=== PATIENT | male | born 1960 | race Caucasian/White ===

== ENCOUNTER 2020-04-09 14:10 | Emergency (ER) | payer OTHER, SELFPAY ==
[2020-04-09 14:13] VITALS: BMI 29.8
[2020-04-09 14:17] VITALS: BP 114/68; PULSE 90; RESP 18; TEMP 36.8; O2SAT 98
--- NOTE | 2020-04-09 14:17 | ED_ITS ---
HPI - General Adult General: Chief complaint: General Medical Stated complaint: constipation/urination problems Time Seen by Provider: 04/09/20 14:14 Source: patient Mode of arrival: ambulatory Limitations: no limitations History of Present Illness: HPI narrative: 59-year-old male who states he has been constipated over the last 2 days and can feel that he is impacted. Patient states he is also not been able to urinate over the last day but believes this is due to his constipation. He states he has abdominal pain he rates a 7 out of 10 lower. Denies any worsening or improving factors. Associated symptoms: Deny chest pain, dyspnea, headache(s) or rash Review of Systems Const: Denies: fever(s), chills, body aches or change in appetite Eyes: Denies: blurry vision or eye discomfort ENMT: Denies: throat pain or dental pain Card: Denies: chest pain Resp: Denies: dyspnea GI: Reports: abdominal pain and constipation : Reports: difficulty urinating Musc: Denies: neck pain or back pain Skin/Breast: Denies: rash Neuro: Denies: headache(s) Psych: Denies: depression Harjit/Lymph: Denies: easy bruising All/Imm: Denies: urticaria Physical Exam Const: COMMON NORMALS: no acute distress, patient oriented x3 and healthy appearing HENMT: COMMON NORMALS: normocephalic and atraumatic HEAD & SCALP: normocephalic and atraumatic Eye: COMMON NORMALS: Equal, round and reactive pupils present and EOMs intact bilaterally PUPIL: Yes Equal, round and reactive pupils present Neck/C-Spine: COMMON NORMALS: full ROM and supple Chest: COMMONS NORMALS: normal inspection of the chest and normal palpation of entire chest wall Resp: COMMON NORMALS: normal respiratory effort, No retractions, No use of accessory muscles and clear to auscultation bilaterally AUSCULTATION: clear to auscultation bilaterally Cardio: COMMON NORMALS: regular rate, regular rhythm and No murmurs present (Cardio) RATE: regular rate RHYTHM: regular rhythm GI: COMMON NORMALS: Soft to palpation and no masses PALPATION: Yes Soft to palpation OTHER: Distention and tenderness to lower abdomen Extremity: COMMON NORMALS: normal to inspection and full ROM Neuro: COMMON NORMALS: patient oriented x3, moves all extremities and no focal motor deficits Psych: COMMON NORMALS: mental status grossly normal, Normal thought process present and cooperative THOUGHT PROCESS: Normal thought process present Skin: COMMON NORMALS: no rashes or lesions noted and no wounds GENERAL SKIN EXAM: no rashes or lesions noted Course Vital Signs: Vital signs: Vital Signs Temperature 98.2 F 04/09/20 14:17 Pulse Rate 90 04/09/20 14:17 Respiratory Rate 18 04/09/20 14:17 Blood Pressure 114/68 04/09/20 14:17 Pulse Oximetry 98 04/09/20 14:17 MDM - General Adult MDM Narrative: Medical decision making narrative: Patient's had multiple large bowel movements here after enema and lactulose. He feels much improved and was able to urinate as well. Patient is stable for discharge and is to follow-up with his primary care doctor in 3 to 5 days and return if worsening. Imaging Data^: KUB: Attestation: I personally reviewed and interpreted this imaging study as follows: Radiologist's impression: [address] [address] XRay Report Signed Patient: Felice Shaikh Unit #: [id number] : 1960 Acct#:[id number] Age/Sex: 59 / M ADM Date: 04/09/20 Loc: ER Room/Bed: Attending Dr: Ordering Provider/Ordering MD: Tony Maria MD Date of Service: 04/09/20 Procedure(s): XR KUB portable 54705 Accession Number(s): [id number] Report Number: [id number] PROCEDURE INFORMATION: Exam: XR Abdomen, 1 View Exam date and time: 04/09/2020 2:50 PM Age: 59 years old Clinical indication: Abdominal pain; Colic; Additional info: Constipation TECHNIQUE: Imaging protocol: XR of the abdomen. Views: Frontal supine view of the abdomen. 1 View. COMPARISON: No relevant prior studies available. FINDINGS: Gastrointestinal tract: Moderate to large amount of stool noted in the colon. Nonobstructive bowel gas pattern. Bones/joints: Degenerative changes of the lumbar spine. XR/XR KUB portable [id number] IMPRESSION: Constipation. Discharge Plan Discharge Patient Disposition: Home, Self-Care Clinical Impression: Constipation Qualifiers: Constipation type: unspecified constipation type Qualified Code(s): K59.00 - Constipation, unspecified Condition: Stable Prescriptions: New Miralax 17 gram/dose powder 17 gm PO DAILY PRN (Reason: constipation) Qty: 119 RF: 0 Discharge Orders: Discharge Order (Routine); Ordered 04/09/20 Ordered By: Tony Maria Discharge Diet: Advance as tolerated Discharge Activity: Resume usual activity Patient Instructions: Constipation (ED) Discharge Date/Time: 04/09/20 16:36 Coding Level of Care Code ED 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
[2020-04-09] MEDS: glycerin adult supp 1 EACH PR (14:25)
[2020-04-09] MEDS: lactulose oral liq 20 gm/30 mL UDC 30 GM PO (14:25)
== END 2020-04-09 16:36 | disposition home or self-care (01) ==
LOC: ER 16:27
PROVIDERS: Emergency Provider Emergency Medicine
DX: K59.00 Constipation, unspecified (principal)
CPT/HCPCS: 12345; 74018; 99281; 99283

== ENCOUNTER → 2020-06-20 15:14 | Outpatient (BNVA) | payer OTHER, SELFPAY | PROVIDERS: Visit Provider Surgery | DX: K59.09 Other constipation (principal) | CPT/HCPCS: 87635 ==

== ENCOUNTER → 2020-06-24 10:20 | Outpatient (BNVA) | payer OTHER, SELFPAY | PROVIDERS: Visit Provider Surgery | DX: Z01.818 Encounter for other preprocedural examination (principal) | CPT/HCPCS: 87635 ==

== ENCOUNTER 2020-06-28 09:52 | Day surgery (SDC) | payer OTHER, SELFPAY ==
[2020-06-20 13:45] VITALS: BMI 29.8
[2020-06-28 10:15] VITALS: BP 134/81; PULSE 67; RESP 18; TEMP 36.3; O2SAT 97
[2020-06-28] MEDS: sodium chloride 0.9% 1,000 ML 30 ML IV (10:24)
--- NOTE | 2020-06-28 10:37 | ANES.PREANE2 ---
Pre-Anesthetic Assessment Pre-Anesthetic Assessment: Height/Weight: Height 1.83 m Weight 99.79 kg Temp Pulse Resp BP Pulse Ox 97.4 F L 67 18 134/81 97 06/28/20 10:15 06/28/20 10:15 06/28/20 10:15 06/28/20 10:15 06/28/20 10:15 Preop Diagnosis: Constipation Proposed Procedure: Operation Date: 06/28/20 12:30 Proposed Procedures p Colonoscopy 24641 K59.09(Not Applicable) - Jarad Olivia MD Familial anesthetic complications: None Was Beta Sandra taken within 24 hours: N/A Last intake: Intake Last Liquid Date 06/27/20 Last Liquid Time 23:55 Last Solid Date 06/26/20 Last Solid Time 18:00 Social: Social History: No alcohol and No tobacco Exam: Pre-Anes Outpt Exam: alert, oriented x 3, clear to auscultation bilaterally and regular rate & rhythm Airway: Cervical ROM: WNL MP: 3 Dentition: Caps and Full Anesthetic Plan: ASA status: 1 Anesthesia: MAC Risk of > 500 ml blood loss (7ml/kg in children): No Meds/Allergies Current Medications: Current Medications Generic Name Dose Route Start Last Admin Trade Name Freq PRN Reason Stop Dose Admin Sodium Chloride 1,000 mls @ 30 ml s/hr 06/28/20 10:00 06/28/20 10:24 Sodium Chloride 0.9% IV 06/29/20 09:59 30 mls/hr .Q24H RYANN Administration PFSH Anesthesia PFSH: Medical History No active medical problems Surgical History H/O circumcision H/O laparoscopy History of cardiac cath History of tonsillectomy Family History Other CAD (coronary artery disease) Diabetes Hypertension Stroke Denies family history of Anesthesia complication Bleeding disorder Cancer Social History Smoking and tobacco status: never smoked Alcohol intake: never Household members: spouse Marital status: Current occupational status: employed History of recent travel: Yes Details: [facility] Out of state: Yes Data Anesthesia Cardiac Studies: No Data to Display
--- NOTE | 2020-06-28 12:42 | W.PM.OPSUD ---
Surgery/Procedure H&P Update DATE OF PROCEDURE: June 28, 2020 DATE H&P PERFORMED: 05/25/20 H&P UPDATE INFORMATION: I have reviewed H&P completed within last 30 days, I have examined patient prior to procedure and No changes to prior documentation PREOP DIAGNOSIS: Constipation PRIMARY INDICATION FOR PROCEDURE: The same PLANNED PROCEDURE: Operation Date: 06/28/20 12:30 Proposed Procedures p Colonoscopy 76132 K59.09(Not Applicable) - Jarad Olivia MD
[2020-06-28 13:10] VITALS: BP 142/43; PULSE 76; RESP 16; TEMP 36.3; O2SAT 96
--- NOTE | 2020-06-29 15:37 | W.PM.OPSFHP ---
Same Day Surgery H&P Indication for Procedure/HPI DATE OF PROCEDURE: June 28, 2020 CHIEF COMPLAINT/INDICATIONFOR SURGICAL PROCEDURE: Screening colonoscopy PREOP DIAGNOSIS: Constipation PLANNED PROCEDRUE: Operation Date: 06/28/20 12:30 Proposed Procedures p Colonoscopy 05202 K59.09(Not Applicable) - Jarad Olivia MD This is a pleasant 59-year-old gentleman presents to my office as a referral to discuss screening colonoscopy as he never had one. Recently had a severe bout of constipation yet he did respond to enemas and stool softeners yet after his visit to the ER, patient denies bleeding per rectum or history of colon cancer and he reports that his constipation resolved now. Patient had a KUB and showed; FINDINGS: Gastrointestinal tract: Moderate to large amount of stool noted in the colon. Nonobstructive bowel gas pattern. Bones/joints: Degenerative changes of the lumbar spine. XR/XR KUB portable [id number] IMPRESSION: Constipation. Interim history 06/28/2020 Patient comes for screening colonoscopy ROS All systems have been reviewed negative except as per the above or per problem Medications/Allergies* Home Medications Medication Instructions Recorded Confirmed Type multivitamin 1 tab PO DAILY 05/25/20 06/28/20 History Allergies/Adverse Reactions Allergy/AdvReac Type Severity Reaction Status Date / Time No Known Allergies Allergy Verified 06/29/20 15:38 Pertinent History/Comorbid Conditions* Medical History (Updated 05/26/20 @ 14:43 by Jarad Olivia MD) No active medical problems Surgical History (Updated 05/26/20 @ 14:43 by Jarad Olivia MD) H/O circumcision H/O laparoscopy History of cardiac cath History of tonsillectomy Family History (Updated 05/25/20 @ 16:42 by Lorri Aguilar LPN) Diabetes CAD (coronary artery disease) Hypertension Stroke Denies family history of Anesthesia complication Bleeding disorder Cancer Social History Smoking and tobacco status: never smoked Alcohol intake: never Household members: spouse Marital status: Current occupational status: employed History of recent travel: Yes Details: [facility] Out of state: Yes Pertinent Exam Findings alert, oriented x 3, clear to auscultation bilaterally and operative site marked (Abdomen nontender nondistended soft) Recommendations Surgery/Procedure today (Screening colonoscopy) Coding Level of Care Code Acute 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
== END 2020-06-28 13:32 | disposition home or self-care (01) ==
PROVIDERS: Visit Provider Surgery
PROC: 0DJD8ZZ Inspection of Lower Intestinal Tract, Via Natural or Artificial Opening Endoscopic (ICD-10-PCS; CPT 45378; principal; 2020-06-28 12:30)
DX: Z12.11 Encounter for screening for malignant neoplasm of colon (principal); K59.00 Constipation, unspecified
CPT/HCPCS: 12345; G0121; J7030

== ENCOUNTER → 2020-09-27 11:22 | Outpatient (BNVA) | payer OTHER, SELFPAY | PROVIDERS: Visit Provider Nurse Practitioner Family | DX: Z20.828 Contact with and (suspected) exposure to other viral communicable diseases (principal); J06.9 Acute upper respiratory infection, unspecified | CPT/HCPCS: 87635 ==